=== PATIENT | female | born 1965 | race Caucasian/White ===

== ENCOUNTER 2018-09-26 06:09 | Day surgery (SDC) | payer OTHER ==
[~2018-09-26] VITALS: Ht 162.6 cm; Wt 97.5 kg
[2018-09-26 06:15] VITALS: BP 140/76
[2018-09-26 10:08] VITALS: BP 106/59
== END 2018-09-26 09:45 | disposition home or self-care (01) ==
LOC: DS 06:09 → EDBD 06:09 → OR 07:30 → DS 07:30
PROVIDERS: Obstetrics & Gynecology
PROC: 0UDB7ZZ Extraction of Endometrium, Via Natural or Artificial Opening (ICD-10-PCS; 2018-09-26)
PROC: 0UJD8ZZ Inspection of Uterus and Cervix, Via Natural or Artificial Opening Endoscopic (ICD-10-PCS; 2018-09-26)
PROC: 0UB97ZZ Excision of Uterus, Via Natural or Artificial Opening (ICD-10-PCS; principal; 2018-09-26 07:30)
DX: N95.0 Postmenopausal bleeding (principal); D26.1 Other benign neoplasm of corpus uteri; E66.9 Obesity, unspecified; Z68.37 Body mass index [BMI] 37.0-37.9, adult
CPT/HCPCS: J2250; J2405; J2704; J3010; J7030; J7120